=== PATIENT | female | born 1980 | race Caucasian/White ===

== ENCOUNTER 2020-12-03 07:56 | Emergency (ER) | payer OTHER, BC ==
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
== END 2020-12-03 09:20 | disposition home or self-care (01) ==
LOC: KA.ED 07:56
DX: S13.4XXA Sprain of ligaments of cervical spine, initial encounter (principal); M54.5 Low back pain; F31.9 Bipolar disorder, unspecified; F17.210 Nicotine dependence, cigarettes, uncomplicated; Z79.899 Other long term (current) drug therapy; V48.5XXA Car driver injured in noncollision transport accident in traffic accident, initial encounter
CPT/HCPCS: 72100; 99284